=== PATIENT | female | born 1940 | race Caucasian/White ===

== ENCOUNTER → 2016-05-12 18:18 | Outpatient (CLI) | payer MEDICARE, OTHER | END | disposition home or self-care (01) | LOC: D.MAMMO 15:30 | DX: Z12.31 Encounter for screening mammogram for malignant neoplasm of breast (principal) ==

== ENCOUNTER → 2018-05-17 17:16 | Outpatient (CLI) | payer MEDICARE, OTHER | END | disposition home or self-care (01) | LOC: D.MAMMO 11:00 | DX: Z12.31 Encounter for screening mammogram for malignant neoplasm of breast (principal) ==

== ENCOUNTER 2019-05-29 09:48 | Emergency (ER) | payer MEDICARE, OTHER ==
[~2019-05-29] VITALS: Ht 170.2 cm; Wt 68.2 kg
[2019-05-29 09:53] VITALS: BP 166/83; Ht 170.2 cm; Wt 68.2 kg
[2019-05-29] MEDS ORDERED: UNSURE OF MEDS (09:55)
[2019-05-29] MEDS ORDERED: MOBIC7.5 MG PO (11:16)
== END 2019-05-29 12:20 | disposition home or self-care (01) ==
LOC: D.ER 09:48
DX: M25.552 Pain in left hip (principal); E03.9 Hypothyroidism, unspecified; F03.90 Unspecified dementia, unspecified severity, without behavioral disturbance, psychotic disturbance, mood disturbance, and anxiety